=== PATIENT | female | born 1990 | race Caucasian/White ===

== ENCOUNTER 2022-04-06 15:45 | Outpatient (REF) | payer BC, SELFPAY ==
--- NOTE | 2022-04-06 15:20 | PAPFT_PTH ---
PATIENT: Katja Jaramillo LOC: [facility] U#:[id number] AGE/SX: 31/F ROOM: RE04/06/[address]: Lora Vernon NP : 1990 BED: DIS: 04/06/2022 SPEC #: [id number] RECD: 04/06/22 18:00 STATUS: BEATRIZ RESantos #: [id number] DANNY: 04/06/22 15:[address]: Lora Vernon NP DEPT: [facility] Cytology RECD BY: Nataliya Moore ENTERED: 04/06/22 18:01 SP TYPE: PAPFT OTHR DR: Augusta Gifford Tissues: 1 - CX/ENDOCX FOR PAP SMEARS Procedures: PAP THIN PREP/[facility] Screening HPV DNA PROBE Comments: [id number] (CHLAMYDIA/GC)
[2022-04-07 15:15] LABS: Chlamydia Result Negative (Negative); GC Result Negative (Negative)
== END 2022-04-06 15:46 | disposition home or self-care (01) ==
LOC: LBN 15:45
PROVIDERS: PCP Naturopath; Visit Provider Nurse Practitioner Women's Health
DX: Z12.4 Encounter for screening for malignant neoplasm of cervix (principal); Z11.3 Encounter for screening for infections with a predominantly sexual mode of transmission; Z11.51 Encounter for screening for human papillomavirus (HPV)
CPT/HCPCS: 87491; 87591; 88142; 87624

== ENCOUNTER 2023-03-21 15:54 | Outpatient (REF) | payer BC, SELFPAY ==
[2023-03-23 13:42] LABS: Chlamydia Result Negative (Negative); GC Result Negative (Negative)
== END 2023-03-21 15:55 | disposition home or self-care (01) ==
LOC: LBN 15:54
PROVIDERS: PCP Naturopath; Visit Provider Nurse Practitioner Women's Health
DX: Z11.3 Encounter for screening for infections with a predominantly sexual mode of transmission (principal)
CPT/HCPCS: 87491; 87591

== ENCOUNTER 2024-04-17 14:39 | Outpatient (REF) | payer BC, SELFPAY ==
[2024-04-18 11:53] LABS: Chlamydia Result Negative (Negative); GC Result Negative (Negative)
== END 2024-04-17 14:40 | disposition home or self-care (01) ==
LOC: LBN 14:39
PROVIDERS: Nurse Practitioner Women's Health; PCP Naturopath; Visit Provider Obstetrics & Gynecology
DX: Z11.3 Encounter for screening for infections with a predominantly sexual mode of transmission (principal); Z12.39 Encounter for other screening for malignant neoplasm of breast; Z80.3 Family history of malignant neoplasm of breast; Z01.419 Encounter for gynecological examination (general) (routine) without abnormal findings; Z30.431 Encounter for routine checking of intrauterine contraceptive device
CPT/HCPCS: 87491; 87591

== ENCOUNTER 2024-05-30 01:15 | Outpatient (CLI) | payer BC, SELFPAY ==
--- NOTE | 2024-05-30 11:14 | DI.MAMMO_ITS ---
Exam(s) MAMMO SCREENING EXAM: MAMMO SCREENING CLINICAL HISTORY: screening, mother with hx breast ca TECHNIQUE: Bilateral full field digital CC and MLO mammographic images were obtained with 3D tomosyn thesis and utilizing computer aided detection (CAD). COMPARISON: This is a baseline examination. FINDINGS: Masses/Architectural Distortion: None seen. Microcalcifications: No suspicious pleomorphic-type are seen. Skin Thickening/Nipple Retraction: None. IMPRESSION: 1. No evidence of malignancy is seen at this time. 2. Unless there is more urgent need, screening mammography is recommended, as per [employer] guidelines. BI-RADS Category 1 - Negative Breast Density - Category B - Scattered areas of fibroglandular density Breast density category C or D implies that the patient has dense breast tissue. Dense breast tissue is very common and is not abnormal but dense breast tissue can make it harder to find cancer on a ma mmogram. Also, dense breast tissue may increase their breast cancer risk. This information about the result of the mammogram report was provided to the patient to raise their awareness. Use this report when you speak with the patient about their risks for breast cancer, which includes their family hist ory. At that time, you may recommend for more screening tests (Ultrasound or MRI) as they might be us eful based on their risk. A negative radiographic report should not delay biopsy if a dominant or clinically suspicious mass is present. Up to ten percent of cancers are not identified on mammography. A negative report may reinforce clinical impression. Adenosis and dense breasts may obscure an underlying neoplasm. False positive reports average 6 to 10%. Patient will receive a letter notifying them of these results.
== END 2024-05-30 01:35 ==
LOC: DI 01:16
PROVIDERS: PCP Naturopath; Visit Provider Nurse Practitioner Women's Health
DX: Z12.31 Encounter for screening mammogram for malignant neoplasm of breast (principal); Z80.3 Family history of malignant neoplasm of breast; R92.323 Mammographic fibroglandular density, bilateral breasts
CPT/HCPCS: 77063; 77067